=== PATIENT | female | born 1960 | race Asian ===

== ENCOUNTER 2020-01-25 14:51 | Outpatient (CLI) | payer OTHER | END 2020-01-25 23:59 | disposition home or self-care (01) | LOC: CFH 14:51 | PROVIDERS: ATTEND Obstetrics & Gynecology | DX: N85.4 Malposition of uterus (principal); D21.9 Benign neoplasm of connective and other soft tissue, unspecified; N95.0 Postmenopausal bleeding | CPT/HCPCS: 76830 ==